=== PATIENT | male | born 1990 | race Hispanic/Latino ===

== ENCOUNTER 2019-10-01 21:30 | Emergency (ER) | payer OTHER ==
--- NOTE | 2019-10-01 21:55 | RAD ---
EXAM: 4 views of the right elbow HISTORY: Elbow pain after fall COMPARISON: None FINDINGS: No elbow effusion is seen. There is no evidence of acute fracture or dislocation. No signi ficant degenerative changes are seen. No soft tissue swelling is present. IMPRESSION: No evidence of acute osseous abnormality.
== END 2019-10-01 22:11 | disposition home or self-care (01) ==
LOC: ERS 21:30
DX: S53.401A Unspecified sprain of right elbow, initial encounter (principal); W19.XXXA Unspecified fall, initial encounter

== ENCOUNTER 2019-10-23 16:29 | Outpatient (CLI) | payer OTHER ==
--- NOTE | 2019-10-23 16:46 | RAD ---
RIGHT ELBOW TWO VIEWS: Date: 10-23-2019 Provided Clinical History: Pain, status post injury. FINDINGS: Comparison is made with the study dated 10-01-2019. There is no evidence for fracture or other acute osseous abnormality. Alignment appears anatomic. Adriana nt spaces appear preserved. Elbow joint effusion is demonstrated. IMPRESSION: Elbow joint effusion without evidence for an acute osseous abnormality. If there is concern for inter nal derangement, consider MRI. POS: [facility]
== END 2019-10-23 16:30 | disposition home or self-care (01) ==
LOC: BICRAD 16:29
PROVIDERS: ATTEND Family Medicine
DX: S53.401D Unspecified sprain of right elbow, subsequent encounter (principal); M25.421 Effusion, right elbow